=== PATIENT | male | born 1995 | race Caucasian/White ===

== ENCOUNTER → 2024-04-27 | Outpatient (CLI) | payer OTHER | LOC: MHCPAIN 08:05 | DX: M54.81 Occipital neuralgia (principal); M79.18 Myalgia, other site; M54.2 Cervicalgia | CPT/HCPCS: G0463; J0665; J1010 ==

== ENCOUNTER → 2024-06-01 | Outpatient (CLI) | payer OTHER | LOC: MHCPAIN 09:25 | DX: M54.12 Radiculopathy, cervical region (principal); G44.86 Cervicogenic headache; M54.81 Occipital neuralgia; M25.511 Pain in right shoulder | CPT/HCPCS: G0463 ==

== ENCOUNTER → 2024-07-26 | Outpatient (CLI) | payer OTHER | LOC: MHCPAIN 08:20 | DX: M25.511 Pain in right shoulder (principal); M54.81 Occipital neuralgia; G44.86 Cervicogenic headache; M50.221 Other cervical disc displacement at C4-C5 level; M48.02 Spinal stenosis, cervical region | CPT/HCPCS: G0463 ==